=== PATIENT | female | born 1955 | race Caucasian/White ===

== ENCOUNTER → 2017-01-14 | Outpatient (CLI) | payer OTHER ==
--- NOTE | 2017-01-14 11:02 | XR ---
EXAMINATION TYPE: XR KUB DATE OF EXAM: 01/14/2017 9:57 AM HISTORY: 12/13/2015 Comparison: None.Single KUB is submitted for interpretation. Findings: Right renal calculi: None Visualized. Right ureteral calculi: None Visualized. Left renal calculi: None Visualized. Left ureteral calculi: Previously noted left renal calculus is now identified within the distal left ureter approximately 2 cm from the lower aspect of the SI joint. Pelvic calcifications: Stable pelvic phleboliths. Bowel gas pattern is unremarkable. No free air. No mass effects. IMPRESSION: 1. Distal left ureteral calculus.
== END | disposition home or self-care (01) ==
LOC: RADXRMAIN 09:44
PROVIDERS: ATTEND Physician Assistant
DX: N20.1 Calculus of ureter (principal)
CPT/HCPCS: 74000

== ENCOUNTER → 2017-01-14 | Outpatient (CLI) | payer OTHER ==
[2017-01-14 10:10] LABS: EKG EKG PERFORMED
[2017-01-14 10:28] LABS: Basophils % (A) 0 %; CH 31.6; CHCM 32.7; Eosinophils # (A) 0.1 k/uL (0-0.7); Eosinophils % (A) 2 %; HCT 46.8 % (34.0-46.0); HDW 2.35; HGB 14.9 gm/dL (11.4-16.0); Luc # (Auto) 0.26; Luc % (Auto) 3; Lymphocytes # (A) 1.4 k/uL (1.0-4.8); Lymphocytes % (A) 16 %; MCH 31.1 pg (25.0-35.0); MCV 97.3 fL (80.0-100.0); Mean Platelet Volume 7.1; Monocytes # (A) 0.6 k/uL (0-1.0); Monocytes % (A) 7 %; Neutrophils # (A) 6.5 k/uL (1.3-7.7); Neutrophils % (A) 73 %; RDW 13.9 % (11.5-15.5); WBC 8.9 k/uL (3.8-10.6); WBC (Perox) 8.75
[2017-01-14 10:59] LABS: Anion Gap 9 mmol/L; Blood Urea Nitrogen 11 mg/dL (7-17); Calcium 9.2 mg/dL (8.4-10.2); Carbon Dioxide 30 mmol/L (22-30); Chloride 103 mmol/L (98-107); Glucose 101 mg/dL (74-99); Non-African American GFR(MDRD) 52 (>60 ml/min/1.73 sqM); Sodium 142 mmol/L (137-145)
== END | disposition home or self-care (01) ==
LOC: LABPAT 10:00
PROVIDERS: ATTEND Physician Assistant
DX: Z01.810 Encounter for preprocedural cardiovascular examination (principal); Z01.812 Encounter for preprocedural laboratory examination; E03.9 Hypothyroidism, unspecified; I48.91 Unspecified atrial fibrillation; N20.1 Calculus of ureter
CPT/HCPCS: 80048; 85025; 93005

== ENCOUNTER 2017-01-21 09:04 | Day surgery (SDC) | payer OTHER ==
[2017-01-18 09:22] VITALS: BMI 32.1
[~2017-01-21 09:04] MED LIST: DEXAMETHASONE SOD PHOSPHATE 10 MG/ML 1 ML VIAL IV ONE; HYDROmorphone 1 MG/ML 1 ML SYRINGE IVP PRN; LACTATED RINGERS 1,000 ML IV SCH; ONDANSETRON 4 MG/2 ML VIAL IVP ONE; Pre Op ABX Message 1 EACH MISC MISCELLANE ONE
--- NOTE | 2017-01-21 09:07 | XR ---
EXAMINATION TYPE: XR KUB DATE OF EXAM: 01/21/2017 8:58 AM CLINICAL DATA: 61-year-old female with lithotripsy today for left-sided kidney stone, evaluate, [facility] COMPARISON: 01/14/2017 FINDINGS: Mild scattered stool but nonobstructive bowel gas pattern. A few millimeter calcific density at the r ight mid abdomen suspected nonobstructive right lower pole renal calculus. Redemonstrated 8 mm elonga nestor calcification in the left hemipelvis. Additional left-sided pelvic phleboliths lower down. Moderate degenerative change of both hips and additional degenerative change mid to lower lumbar spin e. IMPRESSION: 8mm ovoid calcification left hemipelvis, possible distal left ureteral calculus, similar to prior. Possible nonobstructive 8 mm right renal calculus.
[2017-01-21] MEDS ORDERED: PROPOFOL 10 MG/ML 20 ML VIAL IV ONE (12:22)
[2017-01-21] MEDS ORDERED: fentaNYL (PF) 50 MCG/ML 2 ML AMP ONE (12:22)
[2017-01-21] MEDS ORDERED: MIDAZOLAM 2 MG/2 ML VIAL ONE (12:22)
[2017-01-21 13:39] VITALS: TEMP 97.2
[2017-01-21 13:44] VITALS: RESP 16
[2017-01-21 14:16] VITALS: BP 133/88; PULSE 74
--- NOTE | 2017-01-22 10:05 | OP ---
DATE OF SERVICE: 01/21/2017 SURGEON: GENESIS WASHINGTON MD PREOPERATIVE DIAGNOSIS: Distal left ureteral calculus. POSTOPERATIVE DIAGNOSIS: Distal left ureteral calculus. OPERATION: Extracorporeal shockwave lithotripsy of distal left ureteral calculus. Patient is a 61-year-old female with a history of urolithiasis who recently developed left flank pain. She has been discovered to have a 4 x 7 mm calculus in the distal left ureter. Treatment options were reviewed with Dr. Simon and the patient has elected to proceed with ESWL. DESCRIPTION OF PROCEDURE: The patient was taken the operating suite where adequate general anesthesia via LMA was instituted. The patient was placed in the supine position on the fluoroscopy table. The distal left ureteral calculus was localized using biplanar fluoroscopy. Lithotripsy was performed using the Dornier compact delta unit. Patient received 3000 shocks at level 6 at rate of 60 shocks per minute. It was unclear whether the calculus fragmented. Anesthesia was reversed and the patient was returned to the recovery room, awake and in satisfactory condition. She will be seen back later in the week by Dr. Simon for followup. [facility]
== END 2017-01-21 14:26 | disposition home or self-care (01) ==
LOC: ORWHC2ENDO 09:04
PROVIDERS: ATTEND Urology
DX: N20.1 Calculus of ureter (principal); R01.1 Cardiac murmur, unspecified; E78.5 Hyperlipidemia, unspecified; E03.9 Hypothyroidism, unspecified; E78.00 Pure hypercholesterolemia, unspecified; E66.9 Obesity, unspecified; F41.9 Anxiety disorder, unspecified; F32.9 Major depressive disorder, single episode, unspecified; M06.9 Rheumatoid arthritis, unspecified; F17.200 Nicotine dependence, unspecified, uncomplicated; Z79.891 Long term (current) use of opiate analgesic; Z79.899 Other long term (current) drug therapy; Z91.048 Other nonmedicinal substance allergy status
CPT/HCPCS: 74000; 50590; J2250; J1100; J2405; J3010; J2704

== ENCOUNTER → 2017-01-25 | Outpatient (CLI) | payer OTHER ==
--- NOTE | 2017-01-25 10:10 | XR ---
EXAMINATION TYPE: XR KUB DATE OF EXAM: 01/25/2017 9:40 AM COMPARISON: 01/21/2017 INDICATION: Post left-sided lithotripsy TECHNIQUE: Single view abdomen FINDINGS: There is a normal bowel gas pattern. Psoas margins are normal. No organomegaly is present. Left hemipelvis calcification appears to remain present during this exam. Phleboliths within the lowe r pelvis may remain present. Right-sided renal stone is not identified IMPRESSION: 1. Previous right-sided renal stone is not identified 2. Calcification left hemipelvis remains present.
== END | disposition home or self-care (01) ==
LOC: RADXRMAIN 09:20
PROVIDERS: ATTEND Urology
DX: N28.89 Other specified disorders of kidney and ureter (principal)
CPT/HCPCS: 74000